=== PATIENT | male | born 1990 | race African-American/Black ===

== ENCOUNTER 2020-05-23 12:31 | Emergency (ER) | payer OTHER ==
[~2020-05-23] VITALS: Ht 172.7 cm; Wt 68.0 kg
[~2020-05-23 12:31] MED LIST: KEFLEX500 MG PO; NAPROSYN500 MG PO
[2020-05-23] MEDS ORDERED: PROMETH-CODEIN 65 ML PO (13:47)
[2020-05-23] MEDS ORDERED: MUCINEX600 MG PO (13:48)
[2020-05-23 14:07] VITALS: BP 123/78
== END 2020-05-23 14:07 | disposition home or self-care (01) ==
LOC: ER 12:31
DX: R05 Cough (principal); Z20.828 Contact with and (suspected) exposure to other viral communicable diseases; R09.81 Nasal congestion; R07.89 Other chest pain; R19.7 Diarrhea, unspecified; R11.0 Nausea

== ENCOUNTER 2020-08-01 11:34 | Emergency (ER) | payer OTHER ==
[~2020-08-01] VITALS: Ht 172.7 cm; Wt 70.3 kg
[~2020-08-01 11:34] MED LIST changes: +MUCINEX600 MG PO; +PROMETH-CODEIN 65 ML PO
[2020-08-01] MEDS ORDERED: PROMETH-CODEIN 65 ML PO (13:26)
[2020-08-01] MEDS ORDERED: MOBIC7.5 MG PO (13:26)
[2020-08-01 13:45] VITALS: BP 122/59
--- NOTE | 2020-08-01 15:19 | EKG ---
[facility] [place] [address] ELECTROCARDIOGRAM REPORT Name: PREM BLOUNT Room #: DEP [facility]#: [id number] Admission: 08/01/20 Attend Phys: Discharge: 08/01/20 Date of : 89 Report #: [id number] THIS REPORT FOR: cc: MILLY Vergara family physician/PCP MILLY Vergara family physician/PCP Luis Dominguez MD [facility] THIS REPORT FOR: //name// [facility] ED Test Date: 2020-08-01 Test Time: 12:42:26 Pat Name: PREM BLOUNT Department: Room: Gender: [employer]: [facility] : 1990 Requested By: Elpidio Navarro Order Number: [id number] MD: Luis Dominguez Measurements Intervals [place] Rate: 52 P: 21 ND: 140 QRS: -17 QRSD: 99 T: 27 QT: 407 QTc: 379 Interpretive Statements Sinus rhythm Borderline left axis deviation RSR' in V1 or V2, probably normal variant J-Point elev, probable normal early repol pattern Compared to ECG 08/19/2016 00:32:01 ST (T wave) deviation now present Electronically Signed On 08-01-2020 15:19:35 CDT by Luis Dominguez [email or web address] <ELECTRONICALLY SIGNED> By: Luis Dominguez MD, FACC 08/01/20 1519 1242 1242 Luis Dominguez MD, [facility] /EPI
== END 2020-08-01 13:46 | disposition home or self-care (01) ==
LOC: ER 11:34
DX: R09.1 Pleurisy (principal); R05 Cough; R07.9 Chest pain, unspecified

== ENCOUNTER 2020-11-20 17:18 | Emergency (ER) | payer OTHER ==
[~2020-11-20] VITALS: Ht 170.2 cm; Wt 74.8 kg
[~2020-11-20 17:18] MED LIST changes: +MOBIC7.5 MG PO
[2020-11-20] MEDS ORDERED: PROAIR HFA8.5 GM INH (20:27)
[2020-11-20] MEDS ORDERED: PREDNISONE 20 M20 MG PO (20:27)
[2020-11-20] MEDS ORDERED: PROMETH-CODEIN 65 ML PO (20:27)
[2020-11-20 21:04] VITALS: BP 116/75
== END 2020-11-20 21:00 | disposition home or self-care (01) ==
LOC: ER 17:18
DX: J40 Bronchitis, not specified as acute or chronic (principal); R19.7 Diarrhea, unspecified; Z20.822 Contact with and (suspected) exposure to COVID-19

== ENCOUNTER 2021-03-12 14:31 | Emergency (ER) | payer OTHER ==
[~2021-03-12] VITALS: Ht 170.2 cm; Wt 66.7 kg
[~2021-03-12 14:31] MED LIST changes: +PREDNISONE 20 M20 MG PO; +PROAIR HFA8.5 GM INH
[2021-03-12] MEDS ORDERED: PREDNISONE 20 M20 MG PO (16:30)
[2021-03-12] MEDS ORDERED: TESSALON PERLE100 MG PO (16:30)
[2021-03-12 16:38] VITALS: BP 109/66
== END 2021-03-12 16:39 | disposition home or self-care (01) ==
LOC: ER 14:31
DX: R05 Cough (principal); Z20.822 Contact with and (suspected) exposure to COVID-19; R09.89 Other specified symptoms and signs involving the circulatory and respiratory systems; R61 Generalized hyperhidrosis; R07.89 Other chest pain

== ENCOUNTER 2021-10-03 09:41 | Emergency (ER) | payer OTHER ==
[~2021-10-03] VITALS: Ht 172.7 cm; Wt 70.3 kg
[~2021-10-03 09:41] MED LIST changes: +TESSALON PERLE100 MG PO
[2021-10-03] MEDS ORDERED: NAPROSYN500 MG PO (10:12)
[2021-10-03] MEDS ORDERED: CORTISPORIN OTI10 M2 OTIC (10:12)
[2021-10-03 10:38] VITALS: BP 105/73
== END 2021-10-03 10:38 | disposition home or self-care (01) ==
LOC: ER 09:41
PROVIDERS: Emergency Medicine
DX: M26.602 Left temporomandibular joint disorder, unspecified (principal); Z20.822 Contact with and (suspected) exposure to COVID-19; F12.90 Cannabis use, unspecified, uncomplicated; Z79.899 Other long term (current) drug therapy